=== PATIENT | female | born 1995 | race American Indian/Alaskan Native ===

== ENCOUNTER 2017-12-13 22:20 | Observation (INO) ==
[2017-12-13 23:20] LABS: Bilirubin,Urine Negative (Negative); Blood,Urine Small (Negative); Clarity,Urine Cloudy (Clear); Color,Urine Yellow (Yellow); Glucose,Urine (UA) Normal (Normal); Ketones,Urine Negative (Negative); Leukocyte Esterase,Urine Moderate (Negative); Nitrite,Urine Positive (Negative); Protein,Urine Trace mg/dL (Neg-Trace); Specific Gravity,Urine 1.027 (1.010-1.025); Urobilinogen,Urine Normal (Normal)
[2017-12-13 23:22] LABS: Bacteria,Urine Many per hpf (None-Few); Hyaline Casts,Urine None Seen per lpf (None-Few); Squamous Epithelial Cell,Urine Many per lpf (None-Few); WBC,Urine 50-100 per hpf (0-3)
[2017-12-13 23:28] LABS: Amphetamine Screen,Urine Negative ng/mL (Cutoff=1000); Barbiturate Screen,Urine Negative ng/mL (Cutoff=200); Benzodiazepines Screen,Urine Negative ng/mL (Cutoff=200); Cannabinoid Screen,Urine Negative ng/mL (Cutoff = 50); Cocaine Screen,Urine Negative ng/mL (Cutoff= 300); Opiate Screen,Urine Negative ng/mL (Cutoff=300); Phencyclidine Screen,Urine Negative ng/mL (Cutoff=25)
[2017-12-13 23:35] LABS: Calcium Oxalate Crystals,Urine Present
--- NOTE | 2017-12-13 23:57 | OB/GYN Progress Note ---
Date of Encounter: 12/14/17 Time of Encounter: 23:55 - Assessment and Plan (1) 34 weeks gestation of Current Visit: Yes Status: Acute (2) Acute cystitis during in third trimester Current Visit: Yes Status: Acute Pt presenting with c/o lower back pain. UA moderate leukocytes, +nitrites, 50- 100 WBC's. Suspect UTI. Keflex Rx given to pt. Discharge home with precautions. 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 She reports intermittent cramping pain that is primarily in her lower back. No LOF or active bleeding. She does noted a pink tinged mucus earlier today. Good FM. No urinary complaints. No fevers. No vaginal irritation. Antepartum ROS: movement normal, contractions, no loss of fluid, no vaginal bleeding (blood tinged mucus earlier today) Objective - Vital Signs Vital Signs: Intake and Output 12/13/17 12/13/17 12/13/17 07:59 15:59 23:59 Other: Weight 73.9 kg Patient Weight 12/13/17 23:59 Weight 73.9 kg - Exam FHR: category 1 FHR comments: NST reactive Abdomen: Present: soft, gravid. Absent: tenderness Uterus: Absent: tenderness Cervical dilation: 1 Cervix effacement: thick station: high - Labs Labs: Abnormal lab results Urine Clarity Cloudy (Clear) A 12/13/17 23:01 Ur Specific [place] 1.027 (1.010-1.025) H 12/13/17 23:01 Urine Blood Small (Negative) H 12/13/17 23:01 Urine Nitrite Positive (Negative) A 12/13/17 23:01 Ur Leukocyte Esterase Moderate (Negative) H 12/13/17 23:01 Urine Microscopic RBC 5-15 per hpf (0-3) H 12/13/17 23:01 Urine Microscopic WBC 50-100 per hpf (0-3) H 12/13/17 23:01 Ur Squamous Epith Cells Many per lpf (None-Few) H 12/13/17 23:01 Urine Bacteria Many per hpf (None-Few) H 12/13/17 23:01
== END 2017-12-13 23:59 | disposition home or self-care (01) ==
LOC: 1NENULAB
PROVIDERS: ADMIT Obstetrics & Gynecology; ATTEND Obstetrics & Gynecology

== ENCOUNTER 2018-01-11 19:40 | Observation (INO) ==
[2018-01-11 21:20] LABS: Bilirubin,Urine Negative (Negative); Blood,Urine Moderate (Negative); Clarity,Urine Cloudy (Clear); Color,Urine Yellow (Yellow); Glucose,Urine (UA) Normal (Normal); Ketones,Urine Negative (Negative); Leukocyte Esterase,Urine Small (Negative); Nitrite,Urine Negative (Negative); Protein,Urine Negative (Neg-Trace); Specific Gravity,Urine 1.017 (1.010-1.025); Urobilinogen,Urine Normal (Normal)
[2018-01-11 21:22] LABS: Bacteria,Urine Few per hpf (None-Few); Hyaline Casts,Urine None Seen per lpf (None-Few); Squamous Epithelial Cell,Urine Many per lpf (None-Few); WBC,Urine 15-30 per hpf (0-3)
--- NOTE | 2018-01-11 21:32 | OB/GYN Progress Note ---
Date of Encounter: 01/11/18 Time of Encounter: 21:27 - Assessment and Plan (1) 39 weeks gestation of Current Visit: Yes Status: Acute admitted for observation (2) Vaginal bleeding Current Visit: Yes Status: Acute monitoring and toco Patient educated to report if anymore blood is noted. Subjective - Subjective Principal diagnosis: Vaginal bleeding Interval history: Patient is a 22 y/o at 39w0d presents to labor and delivery with complaints vaginal bleeding around 7pm. Patient states she had bright red blood on her toilet paper after wiping. Patient denies any blood clots. Patient stats she has not had any bleeding since just some brown discharge. Patient denies contractions or leaking of fluid. Denies any intercourse prior to bleeding. Patient denies any dysuria or urinary frequency but reports feeling like she has to go but not much comes out. Patient reports +FM. SVE by RN on admission was 2cm and no blood was noted on glove following exam. Antepartum ROS: vaginal bleeding, movement normal, no loss of fluid, no contractions Objective - Vital Signs Vital Signs: Intake and Output 01/11/18 01/11/18 01/11/18 07:59 15:59 23:59 Other: Weight 75.2 kg Patient Weight 01/11/18 23:59 Weight 75.2 kg - Exam FHR: auscultation normal, category 1 FHR comments: 145 bpm moderate variability. Occasional contraction noted. Auscultation: bilateral: normal Abdomen: Present: normal appearance, soft, gravid Uterus: Present: normal Cervical dilation: 2 Comments: No blood noted on perineum.
[2018-01-11 21:48] LABS: RBC,Urine 0-3 per hpf (0-3)
== END 2018-01-11 22:51 | disposition home or self-care (01) ==
LOC: 1NENULAB
PROVIDERS: ADMIT Advanced Practice Midwife; ATTEND Advanced Practice Midwife

== ENCOUNTER 2018-01-16 21:26 | Inpatient (IN) ==
[~2018-01-16 21:26] MED LIST: *HR* Nalbuphine 10 MG/ML AMPUL IVP PRN; Famotidine 20 MG/2 ML VIAL IVP PRN; Lidocaine 1% 20 ML MDV INFILT PRN; Metoclopramide 10 MG/2 ML VIAL IVP PRN; Naloxone 0.4 MG/ML INJ IVP PRN; Ondansetron 4 MG/2 ML VIAL IVP PRN
[2018-01-16] MEDS ORDERED: Oxytocin 20 units/ LR 1000 mL 20 UNIT/1,000 ML BAG IVC SCH (21:30)
--- NOTE | 2018-01-16 21:48 | OB/GYN History & Physical ---
Date of Encounter: 01/16/18 Time of Encounter: 22:13 Assessment and Plan (1) 39 weeks gestation of Current visit: Yes Status: Acute Admit for augmentation of labor secondary SROM GBS negative Patient may have Nubain and/or Epidural upon request for pain control Pitocin for labor augmentation,titrate as needed for adequate contractions Anticipate vaginal delivery POC per consult with Dr. Arnett History of Present Illness Chief complaint: Marycruz hawkins at 1900 HPI: Ms. Mendoza is a 22 year old at 39 weeks and 5 days gestation presents to triage with reports SROM at 1900, large amount clear fluid. She also states that she started feeling contractions two hours prior to water breaking. States positive movement, denies headache, visual disturbance, and epigastric pain. This has been complicated by tobacco dependency and decreased maternal height. Labs: GBS negative O negative GC/Chlamydia negative Varicella Non-immune Rubella immune HIV negative UDS negative Hepatitis B negative Past Med Surg Social Fam HX - Past Medical History Medical history: no medical history Psychiatric history: anxiety - Past Surgical History Surgical History: no surgical history, other (Tonsillectomy and adenoids) - Social History Smoking Status: Current every day smoker Smokeless Tobacco Status: No Alcohol use: none Drug use: none - Family History Mother Adopted: No Family Member Ethnicity: Non- Living Status: Still Living Hx Family Cardiac Disorders: No Hx Family Respiratory Disorders: No Hx Family Cancer: No Hx Family GI Disorders: No Hx Family Endocrine Disorder: No Hx Family Neuromuscular Disorders: No Hx Family Neurologic Disorders: No Hx Family HEENT Disorders: No Hx Family Autoimmune Disorders: No Obstetrical History - Pregnancies : 3 Para: 1 Term: 1 : 0 Ab's: 1 Livin Medications and Allergies [employer] Tablet 09/16/17 [History] Cephalexin [Keflex] 500 mg PO BID #14 capsule 12/13/17 [Rx] 3 Allergy/AdvReac Type Severity Reaction Status Date / Time cetirizine [From Zyrtec] AdvReac Hives Verified 01/11/18 19:49 Review of System OB All systems PM: reviewed and no additional remarkable complaints except as stated Exam - Constitutional Constitutional: well developed, well nourished, no acute distress - HEENT HEENT: Normocephaly, Mucus Membranes Moist - Lungs Respiratory exam: CTAB - Cardiovascular Cardiovascular exam: RRR - Abdomen Abdomen: Present: bowel sounds normal, gravid, diffuse tenderness (on palpation LLQ over round ligament) - Extremities Extremities exam: full ROM, normal inspection Deep Tendon Reflex Grade: 2+ Normal - Cervix Dilation: 2 (2-3 cm) Effacement: 70 (per RN exam) Station: -3 Results All other labs normal. - VTE Reasons for not Prescribing Prophylaxis: Treatment not Indicated - Low risk for VTE
[2018-01-16 22:18] LABS: Basophils % 0.4 %; Eosinophils # 0.1 K/mcL (0.0-0.6); Eosinophils % 1.2 %; Hematocrit 41.2 % (35.3-44.9); Immature Granulocytes % 0.2 % (0-4); Lymphocytes # 2.4 K/mcL (0.6-4.6); Lymphocytes % 25.5 %; Mean Corpuscular Volume 91.2 fL (83.0-100.0); Mean Platelet Volume 10.3 fL (9.4-12.4); Monocytes # 0.4 K/mcL (0.0-1.3); Monocytes % 4.4 %; Neutrophils # 6.5 K/mcL (1.6-8.9); Platelet Count 252 K/mcL (140-400); Red Blood Count 4.52 M/mcL (3.82-4.97); Red Cell Distribution Width 13.4 % (11.5-14.5); Segmented Neutrophils % 68.3 %
[2018-01-16 22:26] LABS: Amphetamine Screen,Urine Negative ng/mL (Cutoff=1000); Barbiturate Screen,Urine Negative ng/mL (Cutoff=200); Benzodiazepines Screen,Urine Negative ng/mL (Cutoff=200); Cannabinoid Screen,Urine Negative ng/mL (Cutoff = 50); Cocaine Screen,Urine Negative ng/mL (Cutoff= 300); Opiate Screen,Urine Negative ng/mL (Cutoff=300); Phencyclidine Screen,Urine Negative ng/mL (Cutoff=25)
[2018-01-17] MEDS: Ringers Solution, Lactated 1,000 ML IVC SCH ×2 (00:30→02:10)
[2018-01-17] MEDS ORDERED: EPHEDrine 50 MG/ML VIAL IVP PRN (00:41)
[2018-01-17] MEDS ORDERED: Ringers Solution, Lactated 500 ML IVC ONE (00:41)
[2018-01-17] MEDS ORDERED: Epidural Premix (fent/bupiv) 110 ML EP ONE ×2 (00:44→08:36)
[2018-01-17] MEDS ORDERED: Epidural Premix (fent/bupiv) 110 ML EP SCH (00:45)
--- NOTE | 2018-01-17 01:20 | Anesthesia Evaluation PreOp ---
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: Denies Any Significant HX Other Medical History: Denies Any Significant HX Anesthesia History: No Prior Anesthetic Complications, Past Anesthesia : Yes Alcohol Use: none Drug use: none Medications and Allergies [employer] Tablet 1 tab PO DAILY 09/16/17 [History] 3 Allergy/AdvReac Type Severity Reaction Status Date / Time cetirizine [From [facility]] AdvReac Hives Verified 01/11/18 19:49 - Meds/Allergy Pre-op Review Medications Reviewed: Yes Allergies Reviewed: Yes Beta Blockers on Current Med List: No Anesthesia Results - Labs 01/16/18 21:43 Anesthesia Exam O2 Sat Height 1.5 m Weight 80.5 kg NPO (# of Hours): 6 Pain Scale: 7 Pain Scale Used: Numeric (1 - 10) - HEENT Pupil (Motor): Pupils equal Mallampati: II Teeth: Normal Oral Opening: Greater than 3 - ARCHITECTURAL ADMINISTRATIVE ASSISTANT LOC: Oriented ARCHITECTURAL ADMINISTRATIVE ASSISTANT Motor: Normal RUE, Normal LUE, Normal RLE, Normal LLE, Normal Face ARCHITECTURAL ADMINISTRATIVE ASSISTANT Sensory: Normal: RUE, LUE, RLE, LLE, Face - Cardiac Rhythm: Regular Murmur: None JVD: No Carotid Bruit: No - Pulmonary Breath Sounds: bilateral Clear Respiratory Effort: Symmetrical Anesthesia Assess/Plan ASA Score: 2 Modified Zach Scale for Level of Consciousness: Cooperative, oriented, and tranquil Anesthetic Plan: General (plan b), Regional (plan a) Autologous Blood: Yes Monitoring Plan: Standard Monitors
--- NOTE | 2018-01-17 01:22 | Anesthesia Procedures ---
Date of Encounter: 01/17/18 Time of Encounter: 01:21 Procedures: Anesthesia - Epidural/Spinal Patient ID/Chart reviewed: Yes Patient examined: Yes OB Eval: Gestational age: 39.5 OB Eval: : 3 OB Eval: Hx Para: 1 OB Eval: Dilated at (cm): 4 OB Eval: Contractions: Non-stressed pattern Consent Obtained: Yes Supplemental Oxygen: None/Room Air Site Prep: Aseptic Technique, Sterile prep and drape, Povidone-Iodine 1% Patient position: upright Local Anesthetic: Lidocaine 1% Amount of Local Anesthetic used: 3 Touhy Needle Gauge: 18 Touhy Needle Depth (cm): 8 Catheter Depth at Skin (cm): 20 Test Dose (1.5% Lido + Epi): Volume given (mls): 5 Test Dose Result: Negative Loading Dose: Other: 10mls of epidural pharm bag premix solution Loading Dose Administered: Thru Catheter Infusion Med: 0.125% Bupivacaine w/ 2 mcg/ml Fentanyl Infusion Rate (mls/hr): 12 ([id number]) Catheter Secured in Place: Tegaderm, Tape Interspace Used: L3-L4 Loss of Resistance (ROBERT): Yes Blood: No CSF: No Paresthesia: No Procedure: pt tolerated procedure well. no complications. vss. fhr stable. see nursing notes for complete vitals.
--- NOTE | 2018-01-17 08:46 | OB Labor Progress Note ---
Date of Encounter: 01/17/18 Time of Encounter: 08:39 Labor Progress Note - Subjective Subjective: Pt resting comfortable with epidural - Cervix Cervix: Complete/0/ LOP - Heart Tones Heart Tones: 145/moderate/-decels/-accels - [place]: 1-3 - Interventions Interventions: Repositioned into extreme left lateral - Plan Plan: Frequent repositioning, continue pitocin per policy anticipate
--- NOTE | 2018-01-17 10:18 | OB/GYN Procedure Note ---
Delivery - Delivery Date: 01/17/18 Provider: Savanna Davis Intrapartum events: none Delivery induction: none Delivery augmentation: pitocin Delivery monitor: external FHT, external uterine Anesthesia: epidural Estimated Blood Loss: 100 - Infant (s) Infant A Infant Delivery Date: 01/17/18 Delivery Time: 10:06 Presentation: vertex Position: OA Route of delivery: Gender: Male Viability: Viable Weight Gram: 3070 kg at 1 minute: 8 at 5 mins: 8 Shoulder Dystocia: not encountered Specimens collected: cord blood Placenta: spontaneous Cord: 3 umbilical vessels, other (very short umbilical cord with marginal insertion. ) - Repair Episiotomy: none Laceration Description: None - Complications Delivery complications: none Delivery comments: Admitted in active labor, progressed to complete with pitocin augmentation. Maternal bearing down efforts to of liveborn male, Vertex delivered OA, shoulders and body easily followed. No nuchal cord or shoulder dystocia encountered. Very short umbilical cord noted unable to place on maternal body, cord clamped and immediately cut, vigorous infant placed on maternal abdomen. APGARS 8/8. Placenta delivered spontaneous, complete upon inspection, perineum intact, EBL 100. Mother and infant left bonding in recovery. - Disposition Mom disposition: stable in LDR [place] disposition: stable in LDR
[2018-01-17] MEDS ORDERED: Acetaminophen 325 MG TABLET PO PRN (12:42)
[2018-01-17] MEDS ORDERED: Lanolin 28 GM TUBE TP PRN (12:42)
[2018-01-17] MEDS ORDERED: Rho Immune Globulin 1,500 UNIT SYRINGE IM PRN (12:42)
[2018-01-17] MEDS ORDERED: Benzocaine/Menthol 56 GM AEROSOL SPRAY TP PRN (12:42)
[2018-01-17] MEDS ORDERED: Oxytocin 20 units/ LR 1000 mL 20 UNIT/1,000 ML BAG IVC SCH (12:42)
[2018-01-17] MEDS: Ibuprofen 600 MG TABLET PO PRN (13:10)
--- NOTE | 2018-01-18 07:54 | Discharge Summary ---
Date of Encounter: 01/18/18 Time of Encounter: 07:52 - Discharge Diagnosis (1) Vaginal delivery Priority: Primary Status: Acute Comments: Stable PPD#1, pain well managed on po pain medication, tolerates regular diet, , desires discharge. - Discharge Medications Prescriptions: Ibuprofen [Motrin] 600 mg PO Q6HR PRN #60 tablet PRN Reason: Cramping Docusate [Colace] 100 mg PO BID #60 capsule Home Medications: [employer] Tablet 1 tab PO DAILY 09/16/17 [History] Acetaminophen [Tylenol] 650 mg PO Q6HR PRN tablet 01/18/18 [Rx] Benzocaine/Menthol [place] [Dermoplast [place]] 1 appl TP QID PRN aerosol 01/18/18 [Rx] Docusate [Colace] 100 mg PO BID #60 capsule 01/18/18 [Rx] Ibuprofen [Motrin] 600 mg PO Q6HR PRN #60 tablet 01/18/18 [Rx] Lanolin 1 appl TP QID PRN tube 01/18/18 [Rx] Vit/FA 1 each PO DAILY tablet 01/18/18 [Rx] Allergies/Adverse Reactions: 3 Allergy/AdvReac Type Severity Reaction Status Date / Time cetirizine [From [facility]] AdvReac Hives Verified 01/11/18 19:49 Data Procedures and tests throughout hospitalization: Laboratory Tests 01/16/18 01/16/18 01/17/18 21:43 21:43 11:05 WBC 9.5 RBC 4.52 Hgb 14.0 Hct 41.2 MCV 91.2 MCH 31.0 MCHC 34.0 RDW 13.4 Plt Count 252 MPV 10.3 Immature Gran % 0.2 Seg Neutrophils % 68.3 Lymphocytes % 25.5 Monocytes % 4.4 Eosinophils % 1.2 Basophils % 0.4 Neutrophils # 6.5 Lymphocytes # 2.4 Monocytes # 0.4 Eosinophils # 0.1 Basophils # 0.0 Urine Opiates Screen Negative Ur Barbiturates Screen Negative Ur Phencyclidine Scrn Negative Ur Amphetamines Screen Negative U Benzodiazepines Scrn Negative Urine Cocaine Screen Negative U Marijuana (THC) Screen Negative Baby's Blood Type O RH POSITIVE Mother's Blood Type O RH NEGATIVE Rhogam Indicated YES Labs on day of discharge: Labs from last 24 hours 01/17/18 11:05 Screen Pending Baby's Blood Type O RH POSITIVE Mother's Blood Type O RH NEGATIVE Rhogam Indicated YES Rhogam Req for Mother Pending Date of admission: 01/16/18 21:26 Consults: 01/17/18 12:42 Consult to Refractory Technician [CONS] Routine Comment: Vaginal delivery, consult needed Consult to Promotion Manager [CONS] Routine Reason for SW Consult: Paternity concerns, history of PPD. Discharging clinician: Savanna Davis Anticipated date of discharge: 01/18/18 - Patient Status Disposition: Home, Self-Care Condition: Good Functional capacity at discharge: independent ambulation Overall status at discharge: patient is back to baseline - Discharge Instructions - Diet and Activity Activity: resume usual activities as tolerated Diet: regular diet Hospital Course Reason for admission: active labor, IUP at term Delivery: Episiotomy: none Laceration: none Other procedures: none complications: none Discharge diagnosis: IUP at term delivered [place] baby: male Hospital course: Delivery - Delivery Date: 01/17/18 Provider: Savanna Davis Intrapartum events: none Delivery induction: none Delivery augmentation: pitocin Delivery monitor: external FHT, external uterine Anesthesia: epidural Estimated Blood Loss: 100 - Infant (s) Infant A Infant Delivery Date: 01/17/18 Delivery Time: 10:06 Presentation: vertex Position: OA Route of delivery: Gender: Male Viability: Viable Weight Gram: 3070 kg at 1 minute: 8 at 5 mins: 8 Shoulder Dystocia: not encountered Specimens collected: cord blood Placenta: spontaneous Cord: 3 umbilical vessels, other (very short umbilical cord with marginal insertion. ) - Repair Episiotomy: none Laceration Description: None - Complications Delivery complications: none Delivery comments: Admitted in active labor, progressed to complete with pitocin augmentation. Maternal bearing down efforts to of liveborn male, Vertex delivered OA, shoulders and body easily followed. No nuchal cord or shoulder dystocia encountered. Very short umbilical cord noted unable to place on maternal body, cord clamped and immediately cut, vigorous placed on maternal abdomen. APGARS 8/8. Placenta delivered spontaneous, complete upon inspection, perineum intact, EBL 100. Mother and infant left bonding in recovery. - Disposition- Stable in PP and appropriate for discharge. Time Attestation: Total time spent providing and/or coordinating discharge services: Time Spent: Less than 30 minutes Exam - Constitutional Vitals: Temp Pulse Resp BP Pulse Ox 97.6 F 76 16 104/72 96 01/18/18 03:35 01/18/18 03:35 01/18/18 03:35 01/18/18 03:35 01/18/18 03:35 General appearance IM: A&O X 3 - Respiratory Respiratory exam: Present: CTAB - Cardiovascular Cardiovascular exam IM: Present: RRR - GI/Abdominal GI/Abdominal exam IM: normal bowel sounds, soft - Uterine Tone: Firm Uterus Position: At Umbilicus - Extremities Exam Extremities exam IM: Present: normal capillary refill, normal inspection - Neurological Exam Neurological exam: normal gait, oriented X3 - Psychiatric Additional comments: Reports good mood.
[2018-01-18 08:07] VITALS: BP 123/78
[2018-01-18] MEDS ORDERED: Prenatal Vit/FA 1 EACH TABLET PO SCH (09:00)
[2018-01-18] MEDS: Ibuprofen 600 MG TABLET PO PRN (10:22)
== END 2018-01-18 12:43 | disposition home or self-care (01) | DRG 560 ==
LOC: 1NENULAB → 1NENUOBS 01-17 12:51
PROVIDERS: ADMIT Advanced Practice Midwife; ATTEND Advanced Practice Midwife

== ENCOUNTER 2020-05-05 14:42 | Inpatient (IN) ==
[~2020-05-05 14:42] MED LIST changes: -*HR* Nalbuphine 10 MG/ML AMPUL IVP PRN; +Azithromycin 500 MG in 0.9 % Sodium Chloride 250 ML IVPB ONE; +EPHEDrine 50 MG/ML VIAL IVP PRN; -Lidocaine 1% 20 ML MDV INFILT PRN
[2020-05-05] MEDS ORDERED: Epidural Premix (fent/bupiv) 110 ML EP SCH (14:45)
[2020-05-05] MEDS ORDERED: Ringers Solution, Lactated 1,000 ML IVC SCH (14:45)
[2020-05-05] MEDS ORDERED: Ringers Solution, Lactated 1,000 ML ONE (14:48)
[2020-05-05 15:06] LABS: Basophils % 0.3 %; Eosinophils # 0.4 K/mcL (0.0-0.6); Eosinophils % 2.8 %; Hematocrit 40.5 % (35.3-44.9); Immature Granulocytes % 0.3 % (0-4); Lymphocytes # 1.8 K/mcL (0.6-4.6); Lymphocytes % 14.1 %; Mean Corpuscular HGB Conc 32.1 g/dL (31.6-35.5); Mean Corpuscular Hemoglobin 28.8 pg (28.0-33.3); Mean Corpuscular Volume 89.8 fL (83.0-100.0); Mean Platelet Volume 10.3 fL (9.4-12.4); Monocytes # 0.9 K/mcL (0.0-1.3); Monocytes % 6.6 %; Neutrophils # 9.8 K/mcL (1.6-8.9); Platelet Count 266 K/mcL (140-400); Red Blood Count 4.51 M/mcL (3.82-4.97); Red Cell Distribution Width 13.9 % (11.5-14.5); Segmented Neutrophils % 75.9 %; White Blood Count 12.9 K/mcL (4.3-11.1)
[2020-05-05] MEDS ORDERED: 0.9 % Sodium Chloride 1,000 ML ONE ×2 (15:51→20:29)
[2020-05-05 16:09] LABS: Amphetamine Screen,Urine Negative ng/mL (Cutoff=1000); Barbiturate Screen,Urine Negative ng/mL (Cutoff=200); Benzodiazepines Screen,Urine Negative ng/mL (Cutoff=200); Cannabinoid Screen,Urine Negative ng/mL (Cutoff = 50); Cocaine Screen,Urine Negative ng/mL (Cutoff= 300); Opiate Screen,Urine Negative ng/mL (Cutoff=300); Phencyclidine Screen,Urine Negative ng/mL (Cutoff=25)
[2020-05-05] MEDS ORDERED: 0.9 % Sodium Chloride 500 ML ONE (17:02)
[2020-05-05] MEDS ORDERED: Oxytocin 20 units/ LR 1000 mL 20 UNIT/1,000 ML BAG IVC ONE (18:27)
[2020-05-05] MEDS ORDERED: Oxytocin 20 units/ LR 1000 mL 20 UNIT/1,000 ML BAG IVC SCH (19:00)
[2020-05-05] MEDS ORDERED: *HR* FentaNYL (PF) 100 MCG/2 ML VIAL ONE (21:51)
[2020-05-05] MEDS ORDERED: *HR* Ropivacaine/PF 0.5% 20 ML VIAL ONE (21:51)
[2020-05-06] MEDS ORDERED: Oxytocin 20 units/ LR 1000 mL 20 UNIT/1,000 ML BAG IVC SCH (04:41)
[2020-05-06] MEDS ORDERED: Acetaminophen 325 MG TABLET PO PRN (04:41)
[2020-05-06] MEDS ORDERED: Oxytocin 20 units/ LR 1000 mL 20 UNIT/1,000 ML BAG IVC ONE (04:41)
[2020-05-06] MEDS ORDERED: Rho Immune Globulin 1,500 UNIT SYRINGE IM PRN (04:41)
[2020-05-06] MEDS: Ibuprofen 600 MG TABLET PO PRN ×3 (05:01→19:45)
[2020-05-06] MEDS ORDERED: Lanolin 7 G OINT...G. TP PRN (05:40)
[2020-05-06] MEDS: Prenatal Vit/FA 1 EACH TABLET PO SCH (07:31)
[2020-05-07] MEDS: Prenatal Vit/FA 1 EACH TABLET PO SCH (07:49)
[2020-05-07] MEDS: Ibuprofen 600 MG TABLET PO PRN (07:50)
[2020-05-08 07:59] VITALS: BP 102/68
[2020-05-08] MEDS ORDERED: Hydrocortisone Rectal 2.5% CRM 28 GM TUBE RC PRN (08:58)
[2020-05-08] MEDS: Prenatal Vit/FA 1 EACH TABLET PO SCH (09:38)
== END 2020-05-08 14:41 | disposition home or self-care (01) | DRG 560 ==
LOC: 1NENULAB → 1NENUOBS 19:58 → 1NENULAB 20:12 → 1NENUOBS 05-06 05:18
PROVIDERS: ADMIT Obstetrics & Gynecology; ATTEND Obstetrics & Gynecology